=== PATIENT | female | born 1945 | race Caucasian/White ===

== ENCOUNTER 2024-03-03 14:19 | Emergency (ER) | payer BC ==
[~2024-03-03] VITALS: Ht 165.1 cm; Wt 76.0 kg
[2024-03-03 14:21] VITALS: TEMP 98
[2024-03-03 15:58] VITALS: BP 133/86; PULSE 80; RESP 16; O2SAT 96
== END 2024-03-03 16:00 | disposition home or self-care (01) ==
LOC: ER 14:20
DX: I10 Essential (primary) hypertension (principal); M25.511 Pain in right shoulder; Z88.1 Allergy status to other antibiotic agents
CPT/HCPCS: 99281